=== PATIENT | female | born 2000 | race Caucasian/White ===

== ENCOUNTER 2018-08-28 17:46 | Emergency (ER) | payer BC ==
--- NOTE | 2018-08-28 18:28 | UC ---
Abdominal Pain Female HPI - HPI Summary HPI Summary: 18 yo female presents with abdominal pain. She tells me that last night she developed some general discomfort around her belly button that has since moved to her lower abdomen and RLQ. The pain is crampy, but is sharp and stabbing at times. Pain is worse with movements - especially doing sit ups. She does feel nauseous and has a decreased appetite, but hasn't vomited. Denies fever, chills , SOB, chest pain, dysuria, vaginal bleeding or discharge. LMP was early August. No hx of ovarian cysts. - History of Current Complaint Stated Complaint: ABDOMINAL PAIN Time Seen by Provider: 08/28/18 18:26 Hx Obtained From: Patient Onset/Duration: Sudden Onset Severity Initially: Mild Severity Currently: Moderate Pain Intensity: 6 Pain Scale Used: 0-10 Numeric Allergies/Adverse Reactions: Allergies Allergy/AdvReac Type Severity Reaction Status Date / Time No Known Allergies Allergy Verified 08/28/18 18:34 Home Medications: Home Medications Ibuprofen 400 mg PO Q6HR PRN 08/28/18 [History Confirmed 08/28/18] PMH/Surg Hx/FS Hx/Imm Hx - Additional Past Medical History Additional PMH: None - Surgical History Surgical History: None - Family History Known Family History: Positive: None - Social History Lives: With Family Alcohol Use: None Substance Use Type: None Smoking Status (MU): Never Smoked Tobacco Review of Systems All Other Systems Reviewed And Are Negative: Yes Constitutional: Positive: Negative Skin: Positive: Negative Eyes: Positive: Negative ENT: Positive: Negative Respiratory: Positive: Negative Cardiovascular: Positive: Negative Gastrointestinal: Positive: Abdominal Pain, Nausea Genitourinary: Positive: Negative Motor: Positive: Negative Neurovascular: Positive: Negative Musculoskeletal: Positive: Negative Neurological: Positive: Negative Psychological: Positive: Negative Physical Exam - Summary Physical Exam Summary: GENERAL: NAD. WDWN. No pain distress. SKIN: No rashes, sores, lesions, or open wounds. NECK: Supple. Nontender. No lymphadenopathy. CHEST: CTAB. No r/r/w. No accessory muscle use. Breathing comfortably and in no distress. CV: RRR. Without m/r/g. Pulses intact. Cap refill <2seconds ABDOMEN: Mild TTP RLQ. Positive McBurnery point tenderness. Negative obturator sign. Negative rovsings and psoas. Soft. No distention or guarding. No CVA tenderness. Bowel sounds present NEURO: Alert. PSYCH: Age appropriate behavior. Triage Information Reviewed: Yes Vital Signs: Vital Signs: Temp Pulse Resp BP Pulse Ox 99.6 F 110 18 123/74 98 08/28/18 18:30 08/28/18 18:30 08/28/18 18:30 08/28/18 18:30 08/28/18 18:30 Vital Signs Reviewed: Yes Abd Pain Female Course/Dx - Course Course Of Treatment: UA and urine negative. I discussed my suspicions of possible appendicitis or ovarian pathology with the pt and she does not want to go to the ER and requests that I ultrasound her appendix in the UC. US: FINDINGS: Appendix: There is a blind ending loop noted in the right lower quadrant measuring approximately 4 mm without wall thickening. Findings are suggestive of a normal-appearing appendix. IMPRESSION: There is a blind ending loop noted in the right lower quadrant measuring approximately 4 mm without wall thickening. Findings are suggestive of a normal-appearing appendix. She declined pelvic exam today. Given that she is afebrile and appendix appears normal - this discomfort could be due to an ovarian cyst. Pt did not want to stay to have another ultrasound to eval for an ovarian cyst/torsion and wished to be discharged. I discussed with her warning signs of appendicitis/ovarian torsion and if she develops a fever, chills, increased pain, vomiting, or new symptoms to go to the ED. She voiced understanding and agrees with the plan. Will draw for CBC, CMP, and CRP today. Advised that she may return tomorrow if she wishes to have an eval/ ultrasound for ovarian pathology. Low suspicion for ectopic at this time as test was negative. - Differential Dx/Diagnosis Provider Diagnosis: RLQ abdominal pain Discharge - Sign-Out/Discharge Documenting (check all that apply): Patient Departure All imaging exams completed and their final reports reviewed: Yes - Discharge Plan Condition: Stable Disposition: HOME Patient Education Materials: Ovarian Cyst (ED), Acute Abdominal Pain (ED) Referrals: Lubna Jimenez MD [Primary Care Provider] - Additional Instructions: If you develop a fever, shortness of breath, chest pain, new or worsening symptoms - please call your PCP or go to the ED immediately. The ultrasound of your appendix appeared normal today. I am unsure the exact cause of your discomfort. It seems most consistent with a possible ovarian cyst, but - as discussed - could also represent an ovarian torsion which is an emergent medical condition. If you would like another ultrasound to check for an ovarian cause, you may return to our clinic tomorrow before 6pm to have an ultrasound. If you develop a fever, vomiting, increased pain, or new symptoms - please go to the ER for further evaluation. - Billing Disposition and Condition Condition: STABLE Disposition: Home
[2018-08-28 20:32] VITALS: BP 107/63
[2018-08-28] MEDS ORDERED: Ondansetron ODT TAB* 4 MG SL ONE (20:41)
[2018-08-29 11:03] LABS: ABS Lymphocytes 1.5 10^3/ul (1.0-4.8); ABS Monocytes 0.7 10^3/ul (0-0.8); ABS Neutrophils 4.2 10^3/ul (1.5-7.7); Eosinophil % 0.3 %; Hematocrit 40 % (35-47); Hemoglobin 13.7 g/dL (12.0-16.0); Lymphocyte % 23.9 %; Mean Corpuscular HGB Conc 34 g/dL (31-36); Mean Corpuscular Hemoglobin 31 pg (27-31); Mean Corpuscular Volume 90 fL (80-97); Mean Platelet Volume 9.8 fL (7.4-10.4); Nucleated Red Blood Cells % 0.1; Platelet Count 187 10^3/uL (150-450); Red Blood Count 4.44 10^6 /uL (3.70-4.87); Red Cell Distribution Width 13 % (10-15); White Blood Count 6.4 10^3/uL (3.5-10.8)
[2018-08-29 11:25] LABS: Albumin 4.3 g/dL (3.2-5.2); Albumin/Globulin Ratio 1.5 (1-3); BUN/Creatinine Ratio 16.7 (8-20); C Reactive Protein 12.66 mg/L (<8.01); Calcium 9.4 mg/dL (8.6-10.3); EGFR African American 154.2 (>60); EGFR Non-African American 127.5 (>60); Globulin 2.8 g/dL (2-4); Potassium 4.3 mmol/L (3.5-5.0); Total Bilirubin 0.9 mg/dL (0.2-1.0); Total Protein 7.1 g/dL (6.4-8.9)
[2018-08-29 12:05] LABS: HIV 4th Generation Negative (Negative)
[2018-08-30 13:10] LABS: Neisseria gonorrhoeae (GC) RNA Negative (Negative)
== END 2018-08-28 21:14 | disposition home or self-care (01) ==
LOC: UCEAST 17:46
DX: R10.31 Right lower quadrant pain (principal)
CPT/HCPCS: 36415; 76705; 80053; 81002; 81025; 85025; 86140; 87389; 87491; 87591; 99212; A9270-GY; G0463